=== PATIENT | female | born 1950 | race Two or more races ===

== ENCOUNTER 2024-07-05 18:01 | Emergency (ER) | payer MEDICARE, OTHER ==
[~2024-07-05] VITALS: Ht 157.5 cm; Wt 86.6 kg
[2024-07-05] MEDS ORDERED: ESCI20TA PO (18:17)
[2024-07-05] MEDS ORDERED: METO50TA7 PO (18:17)
[2024-07-05] MEDS ORDERED: LOSA25TA27 PO (18:17)
[2024-07-05] MEDS ORDERED: TRAZ-257 PO (18:17)
[2024-07-05] MEDS ORDERED: ATOR20TA PO (18:17)
[2024-07-05] MEDS ORDERED: PANT40TA49 PO (18:17)
[2024-07-05] MEDS ORDERED: ONDANSETRON ODT 4 MG TAB.RAPDIS ONE (20:59)
[2024-07-05] MEDS ORDERED: HYDROCODONE/APAP 10-325 MG TABLET ONE (20:59)
[2024-07-05] MEDS: ONDANSETRON ODT 4 MG TAB.RAPDIS SL ONE (21:10)
[2024-07-05] MEDS: HYDROCODONE/APAP 10-325 MG TABLET PO ONE (21:10)
[2024-07-05] MEDS ORDERED: HYDR-3980 PO (21:39)
[2024-07-05] MEDS ORDERED: CYCL10TA9 PO (21:39)
[2024-07-05] MEDS ORDERED: ONDA4TAB11 PO (21:39)
[2024-07-05] MEDS ORDERED: HYDROMORPHONE 1 MG/1 ML DISP.SYRIN ONE (22:50)
[2024-07-05] MEDS: HYDROMORPHONE 1 MG/1 ML DISP.SYRIN IM ONE (22:54)
[2024-07-05 23:04] VITALS: BP 152/67; TEMP 98.6; O2SAT 96
== END 2024-07-05 22:59 | disposition home or self-care (01) ==
LOC: ER 18:01
DX: M54.42 Lumbago with sciatica, left side (principal); K21.9 Gastro-esophageal reflux disease without esophagitis; M79.662 Pain in left lower leg; Z79.899 Other long term (current) drug therapy
CPT/HCPCS: 99285; 93926; 93971; 72100; 96372; J1171; A4606; A4663; Q0162

== ENCOUNTER 2024-09-05 12:43 | Emergency (ER) | payer MEDICARE, OTHER ==
[~2024-09-05] VITALS: Ht 157.5 cm; Wt 31.3 kg
[~2024-09-05 12:43] MED LIST: ATOR20TA PO; CYCL10TA9 PO; ESCI20TA PO; HYDR-3980 PO; LOSA25TA27 PO; METO50TA7 PO; ONDA4TAB11 PO; PANT40TA49 PO; TRAZ-257 PO
[2024-09-05] MEDS ORDERED: METOCLOPRAMIDE HCL 10 MG/2 ML VIAL ONE (13:21)
[2024-09-05] MEDS ORDERED: METOCLOPRAMIDE HCL 10 MG TABLET ONE (13:21)
[2024-09-05 13:23] LABS: BASOPHILS % (AUTO) 0.7 % (0.0-2.0); EOSINOPHILS # (AUTO) 0.1 K/uL (0.0-0.7); EOSINOPHILS % (AUTO) 1.2 % (0.0-7.0); HEMATOCRIT 36.5 % (31.2-41.9); HEMOGLOBIN 12.1 g/dL (10.9-14.3); LYMPHOCYTES # (AUTO) 1.3 K/uL (0.8-4.8); LYMPHOCYTES % (AUTO) 26.9 % (20.5-51.5); MEAN CORPUSCULAR HEMOGLOBIN 28.4 uug (24.7-32.8); MEAN CORPUSCULAR HGB CONC 33 g/dL (32.3-35.6); MEAN CORPUSCULAR VOLUME 85.8 fL (75.5-95.3); MONOCYTES # (AUTO) 0.7 K/uL (0.1-1.30); MONOCYTES % (AUTO) 13.5 % (0.0-11.0); NEUTROPHILS # (AUTO) 2.9 K/uL (1.8-8.9); NEUTROPHILS % (AUTO) 57.7 % (38.5-71.5); PLATELET COUNT (AUTO) 192 K/uL (179-408); RED BLOOD CELL COUNT(AUTO) 4.25 MIL/uL (3.63-4.92); RED CELL DISTRIBUTION WIDTH 14.8 % (12.3-17.7)
[2024-09-05] MEDS: METOCLOPRAMIDE HCL 10 MG/2 ML VIAL IV ONE (13:23)
[2024-09-05 13:24] LABS: DIFFERENTIAL COMMENT 1
[2024-09-05 13:32] LABS: CALCIUM 8.2 mg/dL (8.5-10.1); CARBON DIOXIDE 25 mmol/L (21-32); CHLORIDE 109 mmol/L (98-107); CREATININE 0.8 mg/dL (0.6-1.3); GLUCOSE 101 mg/dL (74-106); POTASSIUM 3.9 mmol/L (3.5-5.1); SODIUM SERUM 144 mmol/L (136-145); UREA NITROGEN, BLOOD 15 mg/dL (7-18)
[2024-09-05 13:36] LABS: ALANINE AMINOTRANSFERASE 22 U/L (14-59); ALBUMIN 3.1 g/dL (3.4-5.0); ALKALINE PHOSPHATASE 71 U/L (50-136); ASPARTATE AMINOTRANSFERASE 20 U/L (15-37); BILIRUBIN,DIRECT 0.1 mg/dL (0.0-0.2); BILIRUBIN,TOTAL 0.3 mg/dL (0.2-1.0); LIPASE 14 U/L (16-77); TOTAL PROTEIN, SERUM 6.4 g/dL (6.4-8.2)
[2024-09-05] MEDS: IV LACTATED RINGERS SOLUTION 1,000 ML BAG IV ONE (13:52)
[2024-09-05 16:59] LABS: *BILIRUBIN,URIN NEGATIVE (NEGATIVE); *CLARITY,URINE CLEAR (CLEAR); *COLOR,URINE YELLOW (YELLOW); *KETONES,URINE NEGATIVE (NEGATIVE); *PROTEIN,URINE NEGATIVE (NEGATIVE); *UROBILINOGEN,URINE 0.2 E.U./dl (NORMAL); LEUKOCYTE ESTERASE ,URINE NEGATIVE (NEGATIVE); NITRITE, URINE NEGATIVE (NEGATIVE); UGLUCOSE NEGATIVE (NEGATIVE)
[2024-09-05 17:05] LABS: *BLOOD, URINE NEGATIVE (NEGATIVE)
[2024-09-05] MEDS ORDERED: DIPH1TAB PO (17:21)
[2024-09-05 18:03] VITALS: BP 144/66; TEMP 98.2; O2SAT 97
== END 2024-09-05 18:04 | disposition home or self-care (01) ==
LOC: ER 12:43
DX: E86.0 Dehydration (principal); R19.7 Diarrhea, unspecified; Z79.899 Other long term (current) drug therapy
CPT/HCPCS: 99284; 96374; 96361; 80076; 80048; 81003; 83690; 85025; 36415; 74021; J2765; A4606; A4663; J8597